=== PATIENT | female | born 1945 | race Caucasian/White ===

== ENCOUNTER 2020-11-22 16:07 | Emergency (ER) | payer MEDICARE, OTHER ==
[2020-11-22 17:27] LABS: RED BLOOD COUNT 4.2 M/UL (4.00-5.10)
== END 2020-11-22 21:29 | disposition short-term general hospital (02) ==
LOC: ER1 16:07 → CDU 17:49 → ER1 21:29
PROVIDERS: Preventive Medicine Occupational Medicine
DX: R56.9 Unspecified convulsions (principal); C71.9 Malignant neoplasm of brain, unspecified; I10 Essential (primary) hypertension; E78.5 Hyperlipidemia, unspecified; R41.82 Altered mental status, unspecified; F17.210 Nicotine dependence, cigarettes, uncomplicated; Z79.899 Other long term (current) drug therapy; Z20.822 Contact with and (suspected) exposure to COVID-19; E55.9 Vitamin D deficiency, unspecified
CPT/HCPCS: 0240U; 36600; 70450; 71045; 71250; 80053; 82140; 82550; 82553; 82803; 83605; 83690; 83874; 83880; 84484; 85025; 85610; 85652; 85730; 86140; 87040; 93005; 96374; 99285; J0696

== ENCOUNTER 2021-04-02 08:17 | Inpatient (IN) | payer OTHER, MEDICARE ==
[~2021-04-02] VITALS: Ht 167.6 cm; Wt 95.3 kg
[2021-04-02 08:46] LABS: HEMOGLOBIN 7.9 gm/dl (12.3-15.3); RED BLOOD COUNT 2.39 M/UL (4.00-5.10); WHITE BLOOD COUNT 4.7 K/UL (4.5-11.0)
[2021-04-02] MEDS ORDERED: LEVETIRACETAM750 MG PO (14:57)
[2021-04-02] MEDS ORDERED: DIGOXIN125 MCG PO (14:57)
[2021-04-02] MEDS ORDERED: VALIUM 5 MG TAB5 MG PO (14:58)
[2021-04-02] MEDS ORDERED: ELIQUIS2.5 MG PO (14:58)
[2021-04-02] MEDS ORDERED: DIPHENOXYLATE-1 EACH PO (14:58)
[2021-04-02] MEDS ORDERED: METOPROLOL SUC100 MG PO (14:59)
[2021-04-02] MEDS ORDERED: CRESTOR10 MG PO (14:59)
[2021-04-02] MEDS ORDERED: PRAMIPEXOLE0.125 MG PO (14:59)
[2021-04-02] MEDS ORDERED: TRAZODONE HCL50 MG PO (15:00)
[2021-04-02] MEDS ORDERED: FOLIC ACID1 MG PO (15:00)
[2021-04-02] MEDS ORDERED: ESOMEPRAZOLE MA40 MG PO (15:00)
[2021-04-02] MEDS ORDERED: SERTRALINE HCL100 MG PO (15:00)
[2021-04-02] MEDS ORDERED: ASPIRIN81 MG PO (15:01)
[2021-04-02] MEDS ORDERED: EXCEDRIN MIGRA1 EACH PO (15:01)
[2021-04-02] MEDS ORDERED: VITAMIN D325 MC6 PO (15:02)
[2021-04-02] MEDS ORDERED: OXYCODONE HCL5 MG PO (15:07)
[2021-04-03 04:34] LABS: HEMOGLOBIN 7.3 gm/dl (12.3-15.3); RED BLOOD COUNT 2.19 M/UL (4.00-5.10)
--- NOTE | 2021-04-06 13:50 | NUR ---
CALLED PHARMACY RE: VIDEO GAME REPAIR TECHNICIAN PUMP. MORPHINE VIDEO GAME REPAIR TECHNICIAN NOT AVAILABLE. PATIENT IS WELL-CONTROLLED WITH WHAT IS ORDERED. PHARMACY SAID TO NOTIFY THEM IF THAT CHANGES. WCTM CLOSELY.
--- NOTE | 2021-04-08 06:21 | NUR ---
0613 PROVIDED MOUTH CARE WITH GLYCERINE SWABS, APPLIED LIP BALM. CLEANED EYES WITH A WARM DAMP WAS CLOTH.
--- NOTE | 2021-04-10 06:14 | NUR ---
ACCIDENTALLY PULLED ATIVAN KIT INSTEAD OF REMOVING THE MOSS FIRST, AND THEN REMOVING THE ATIVAN AT 0454. IN THE MAR, IT LOOKED IF I DID AN OVERRIDE. I GAVE THE SCHEDULED 0600 0.25 ML DOSE OF ATIVAN, BUT DID NOT GIVE THE OVERRIDE DOSE AT 0454. THIS EVENT WAS WITNESSED BY PHAN DAVIS RN AND MARYAN KEITH, THE CHARGE NURSE.
== END 2021-04-10 21:31 | disposition expired | DRG 871 ==
LOC: ER1 08:17 → PROG CARE 10:54 → M/S 10:54 → CDU 10:54 → PROG CARE 20:28 → M/S 04-05 17:46
PROVIDERS: Emergency Medicine; Physician Assistant; ADMIT Internal Medicine
PROC: 3E033XZ Introduction of Vasopressor into Peripheral Vein, Percutaneous Approach (ICD-10-PCS; principal; 2021-04-02)
DX: A41.9 Sepsis, unspecified organism (principal); J96.21 Acute and chronic respiratory failure with hypoxia; J69.0 Pneumonitis due to inhalation of food and vomit; J18.9 Pneumonia, unspecified organism; G93.41 Metabolic encephalopathy; R65.21 Severe sepsis with septic shock; C34.90 Malignant neoplasm of unspecified part of unspecified bronchus or lung; C79.31 Secondary malignant neoplasm of brain; N17.9 Acute kidney failure, unspecified; Z20.822 Contact with and (suspected) exposure to COVID-19; Z51.5 Encounter for palliative care; Z66 Do not resuscitate; E87.6 Hypokalemia; G25.81 Restless legs syndrome; I12.9 Hypertensive chronic kidney disease with stage 1 through stage 4 chronic kidney disease, or unspecified chronic kidney disease; D63.1 Anemia in chronic kidney disease; D69.59 Other secondary thrombocytopenia; T45.1X5A Adverse effect of antineoplastic and immunosuppressive drugs, initial encounter; L89.322 Pressure ulcer of left buttock, stage 2; N18.30 Chronic kidney disease, stage 3 unspecified; E78.5 Hyperlipidemia, unspecified; G40.909 Epilepsy, unspecified, not intractable, without status epilepticus; F17.210 Nicotine dependence, cigarettes, uncomplicated; Z90.49 Acquired absence of other specified parts of digestive tract; Z98.42 Cataract extraction status, left eye; Z98.41 Cataract extraction status, right eye; Z90.710 Acquired absence of both cervix and uterus; Z82.49 Family history of ischemic heart disease and other diseases of the circulatory system; Z80.3 Family history of malignant neoplasm of breast; Z86.711 Personal history of pulmonary embolism; Z79.01 Long term (current) use of anticoagulants; Z86.718 Personal history of other venous thrombosis and embolism
CPT/HCPCS: 36415; 36600; 51702; 70450; 71045; 80053; 80307; 81001; 82140; 82550; 82553; 82803; 83605; 83735; 83874; 83880; 84484; 85025; 87040; 93005; 94640; 94660; 94664; 94760; 96365; 96366; 96367; 99285; C9113; J0692; J1650; J1953; J2060; J2185; J2270; J2310; J2543; J2920; J3370; J7030; J7050; U0002